=== PATIENT | female | born 1935 | race Caucasian/White ===

== ENCOUNTER 2016-11-12 15:48 | Emergency (ER) | payer MEDICARE, OTHER ==
[2016-11-12] MEDS ORDERED: SODIUM CHLORIDE 0.9% 1,000 ML ONE (17:28)
[2016-11-12] MEDS ORDERED: KCL CR 20 MEQ TAB PO ONE (17:58)
== END 2016-11-12 20:19 | disposition home or self-care (01) ==
LOC: ER 15:48
DX: E86.0 Dehydration (principal); H66.92 Otitis media, unspecified, left ear; N39.0 Urinary tract infection, site not specified; I10 Essential (primary) hypertension; Z86.73 Personal history of transient ischemic attack (TIA), and cerebral infarction without residual deficits
CPT/HCPCS: 36415; 80053; 81001; 85025; 87088; 96360; 96361